=== PATIENT | female | born 1960 | race Caucasian/White ===

== ENCOUNTER 2021-06-26 16:16 | Emergency (ER) | payer MEDICAID ==
[~2021-06-26] VITALS: Ht 162.6 cm; Wt 76.8 kg
[~2021-06-26 16:16] MED LIST: ALOG25TA PO; ATOR20TA66 PO; CARV-50 PO; CHOL100046 PO; CLOP75TA15 PO; GABA300C PO; HYDR25TA4 PO; INSU100I31 SQ; LISI10TA27 PO; METF-438 PO; PROP10DR5 EACHEYE; XAL0.005OS EACHEYE
[2021-06-26] MEDS ORDERED: famotidine/PF 10 mg/ml inj IV ONE (16:30)
[2021-06-26] MEDS ORDERED: ondansetron/PF 4mg/2ml inj IV ONE (16:30)
[2021-06-26 17:03] LABS: ALANINE AMINOTRANSFERASE 59 U/L (12-78); ALBUMIN 3.4 G/DL (3.4-5.0); ALKALINE PHOSPHATASE 60 IU/L (46-116); ANION GAP 9 (8-16); ASPARTATE AMINO TRANSFERASE 24 U/L (10-37); BILIRUBIN,TOTAL 0.2 MG/DL (0.1-1.0); BLOOD UREA NITROGEN 32 MG/DL (7-18); CHLORIDE 109 MMOL/L (99-107); CREATININE 1.23 MG/DL (0.40-0.90); GLUCOSE 116 MG/DL (70-104); POTASSIUM 4.4 MMOL/L (3.5-5.1); SODIUM 143 MMOL/L (135-145); TOTAL CARBON DIOXIDE 25.5 MMOL/L (24-32); TOTAL PROTEIN 6.7 G/DL (6.4-8.2); eGFR 45 ML/MIN
[2021-06-26 17:06] LABS: BASOPHILS # (AUTO) 0.1 X10'3 (0-0.2); BASOPHILS % (AUTO) 0.7 % (0-1); EOSINOPHILS # (AUTO) 0.3 X10'3 (0-0.9); EOSINOPHILS % (AUTO) 2.9 % (0-6); HEMATOCRIT 34.5 % (35.0-45.0); HEMOGLOBIN 11.5 g/dl (12.0-16.0); LYMPHOCYTES # (AUTO) 2.8 X10'3 (1.1-4.8); LYMPHOCYTES % (AUTO) 27.4 % (21-51); MEAN CORPUSCULAR HEMOGLOBIN 30.7 PG (27.0-31.0); MEAN CORPUSCULAR HGB CONC 33.3 g/dL (33.0-36.5); MONOCYTES # (AUTO) 0.9 X10'3 (0-0.9); MONOCYTES % (AUTO) 9.1 % (2-12); NEUTROPHILS # (AUTO) 6.1 X10'3 (1.8-7.7); NEUTROPHILS % (AUTO) 59.9 % (42-75); PLATELET COUNT 356 X10'3 (140-440); RED BLOOD COUNT 3.74 X10'6 (4.20-5.60); RED CELL DISTRIBUTION WIDTH 14.8 % (11.5-14.5); WHITE BLOOD COUNT 10.2 X10'3 (4.5-11.0)
[2021-06-26 19:11] VITALS: BP 144/64
[2021-06-26] MEDS ORDERED: PANT-47 PO (19:30)
== END 2021-06-26 20:00 | disposition home or self-care (01) ==
LOC: ER 16:17
DX: K29.00 Acute gastritis without bleeding (principal); F17.200 Nicotine dependence, unspecified, uncomplicated; Z86.73 Personal history of transient ischemic attack (TIA), and cerebral infarction without residual deficits; Z88.6 Allergy status to analgesic agent; Z79.4 Long term (current) use of insulin; Z79.899 Other long term (current) drug therapy
CPT/HCPCS: 36415; 71045; 80053; 84484; 85025; 93005; 96374; 96375; 99285; J2405; J3490

== ENCOUNTER 2021-08-04 17:21 | Inpatient (IN) | payer MEDICAID ==
[~2021-08-04] VITALS: Ht 170.2 cm; Wt 79.0 kg
[~2021-08-04 17:21] MED LIST changes: +PANT-47 PO
[2021-08-04] MEDS ORDERED: normal saline 1000ML IV soln IV ONE ×2 (17:30→18:15)
[2021-08-04 17:47] LABS: BASOPHILS # (AUTO) 0.1 X10'3 (0-0.2); BASOPHILS % (AUTO) 0.3 % (0-1); EOSINOPHILS % (AUTO) 0 % (0-6); HEMOGLOBIN 12.1 g/dl (12.0-16.0); LYMPHOCYTES # (AUTO) 1.5 X10'3 (1.1-4.8); LYMPHOCYTES % (AUTO) 6.4 % (21-51); MEAN CORPUSCULAR HEMOGLOBIN 30.8 PG (27.0-31.0); MEAN CORPUSCULAR HGB CONC 33.5 g/dL (33.0-36.5); MEAN CORPUSCULAR VOLUME 92.1 FL (78-98); MEAN PLATELET VOLUME 9.4 FL (7.4-10.4); MONOCYTES # (AUTO) 1.6 X10'3 (0-0.9); MONOCYTES % (AUTO) 6.5 % (2-12); NEUTROPHILS # (AUTO) 20.8 X10'3 (1.8-7.7); NEUTROPHILS % (AUTO) 86.8 % (42-75); PLATELET COUNT 324 X10'3 (140-440); RED BLOOD COUNT 3.91 X10'6 (4.20-5.60); RED CELL DISTRIBUTION WIDTH 14.3 % (11.5-14.5)
[2021-08-04 18:14] LABS: ALANINE AMINOTRANSFERASE 45 U/L (12-78); ALBUMIN 3.3 G/DL (3.4-5.0); ALBUMIN/GLOBULIN RATIO 0.8 (1.1-1.5); ALKALINE PHOSPHATASE 83 IU/L (46-116); ANION GAP 9 (8-16); ASPARTATE AMINO TRANSFERASE 36 U/L (10-37); BILIRUBIN,TOTAL 0.5 MG/DL (0.1-1.0); BLOOD UREA NITROGEN 25 MG/DL (7-18); BUN/CREATININE RATIO 16.4 (6.6-38.0); CALCIUM 9.3 MG/DL (8.5-10.1); CHLORIDE 102 MMOL/L (99-107); CREATININE 1.52 MG/DL (0.40-0.90); GLUCOSE 242 MG/DL (70-104); POTASSIUM 3.8 MMOL/L (3.5-5.1); SODIUM 139 MMOL/L (135-145); TOTAL CARBON DIOXIDE 27.6 MMOL/L (24-32); TOTAL PROTEIN 7.3 G/DL (6.4-8.2); eGFR 35 ML/MIN
[2021-08-04] MEDS ORDERED: CefTRIAXone 2gm/NS 100ml IVPB 100 ML IV ONE (18:15)
[2021-08-04 18:17] LABS: CLARITY,URINE CLEAR (Clear); COLOR,URINE YELLOW (Yellow); GLUCOSE, URINE 250 mg/dl (Neg); KETONES,URINE NEGATIVE (Neg); LEUKOCYTE ESTERASE ,URINE NEGATIVE (Neg); NITRITES, URINE NEGATIVE (Neg); OCCULT BLOOD,URINE SMALL (Neg); PH,URINE 6.5 (4.8-8.0); PROTEIN,URINE >=300 mg/dl (Neg)
[2021-08-04 18:26] LABS: UA COLLECTION TYPE STRAIGHT CATH
[2021-08-04 18:27] LABS: BACTERIA,URINE FEW /HPF (Neg); RBC,URINE 0-2 /HPF (0-2); SQUAMOUS EPITHELIAL CELL,UR FEW /LPF (FEW); WBC,URINE NONE SEEN /HPF (0-4)
[2021-08-04 18:39] LABS: URINE AMPHETAMINE SCREEN POSITIVE (Neg); URINE BARBITUATE SCREEN NEGATIVE (Neg); URINE BENZODIAZEPINES SCREEN NEGATIVE (Neg); URINE CANNABINOID SCREEN NEGATIVE (Neg); URINE COCAINE SCREEN NEGATIVE (Neg); URINE METHADONE SCREEN NEGATIVE (Neg); URINE OPIATE SCREEN NEGATIVE (Neg); URINE PHENCYCLIDINE SCREEN NEGATIVE (Neg)
[2021-08-04] MEDS: normal saline 1000ml 1,000 ML IV SCH (19:50)
[2021-08-04] MEDS ORDERED: naloxone 0.4 mg/ml inj IV PRN (19:50)
[2021-08-04] MEDS ORDERED: ondansetron/PF 4mg/2ml inj IV PRN (19:50)
[2021-08-04] MEDS ORDERED: magnesium hydroxide 30ml (MOM) UD suspension PO PRN (19:50)
[2021-08-04] MEDS ORDERED: bisacodyl 10mg suppository rectal RC PRN (19:50)
[2021-08-04] MEDS ORDERED: diphenhydrAMINE 25mg capsule PO PRN (19:50)
[2021-08-04] MEDS ORDERED: acetaminophen 325mg tablet PO PRN ×2 (19:50)
[2021-08-04] MEDS ORDERED: mag hydrox/Alum hydrox/simeth 30ml oral suspension PO PRN (19:50)
[2021-08-04] MEDS ORDERED: acetaminophen 650mg rectal suppository RC PRN (19:50)
[2021-08-04] MEDS ORDERED: ondansetron 4mg rapidly disintigrating tab PO PRN (19:50)
[2021-08-04] MEDS ORDERED: diphenhydrAMINE 50 mg/ml inj IV PRN (19:50)
[2021-08-04] MEDS: docusate sod 100mg capsule PO SCH (20:00)
[2021-08-04] MEDS ORDERED: piperacillin/tazo 4.5gm/100ml 100 ML IV SCH (20:00)
[2021-08-04 20:15] LABS: APTT 30 SECONDS (22-32)
[2021-08-04 20:16] LABS: HEMOGLOBIN A1C 8.3 % (4.5-6.2)
[2021-08-04 20:24] LABS: MAGNESIUM 1.7 MG/DL (1.5-2.4); PHOSPHORUS 2.9 MG/DL (2.3-4.5)
[2021-08-04] MEDS ORDERED: vancomycin/NS 1 GM ADD-VANTAGE 250 ML IV SCH (20:30)
[2021-08-04] MEDS ORDERED: temazepam 15mg capsule PO PRN (21:00)
[2021-08-04] MEDS ORDERED: OMEP20TA43 PO (21:19)
[2021-08-04] MEDS ORDERED: ARIP5TAB60 PO (21:19)
[2021-08-04] MEDS ORDERED: LIDO700A47 TOP (21:19)
[2021-08-04] MEDS ORDERED: GABA300C PO (21:19)
[2021-08-04] MEDS ORDERED: ESCI20TA39 PO (21:19)
[2021-08-04] MEDS ORDERED: CARV3.122 PO (21:19)
[2021-08-04] MEDS ORDERED: ATOR-2 PO (21:19)
[2021-08-04] MEDS ORDERED: DULA0.75 SQ (21:19)
[2021-08-04] MEDS ORDERED: CLOP75TA34 PO (21:19)
[2021-08-04] MEDS ORDERED: LATA2.5D14 EACHEYE (21:19)
[2021-08-04] MEDS ORDERED: METF-517 PO (21:19)
[2021-08-04] MEDS ORDERED: SITA100T15 PO (21:19)
[2021-08-04] MEDS ORDERED: DEXTROSE 15 GM of carb/4 tabs (each vial/BOTTLE has 4 tablets) PO PRN ×2 (21:35)
[2021-08-04] MEDS ORDERED: dextrose 50%-water 50ml dispensing syringe IV PRN ×2 (21:35)
[2021-08-04] MEDS ORDERED: glucagon, human recombinant 1mg kit SUBCUT PRN (21:35)
[2021-08-04] MEDS ORDERED: MESSAGE TO PHARMACY PO ONE (21:35)
[2021-08-04] MEDS: heparin, porcine 5000 units/ml vial SQ SCH (22:39)
[2021-08-04] MEDS: morphine 2 MG/ML inj. syringe IV PRN (22:44)
--- NOTE | 2021-08-05 01:41 | NUR ---
PT LINENS CHANGED. NS INFUSING AT 100ML/ HR. NO ACUTE DISTRESS. GEN WEAKNESS NOTED. NO UNILATERAL WEAKNESS, FACIAL DROOP OR APHASIA NOTED. WILL CONT TO MONITOR THROUGHOUT
--- NOTE | 2021-08-05 03:30 | NUR ---
pt moved from stretcher to hospital bed. alize care provided
[2021-08-05] MEDS: morphine 2 MG/ML inj. syringe IV PRN (04:40)
--- NOTE | 2021-08-05 05:31 | NUR ---
blood draw performed. external cath placed
[2021-08-05 05:44] LABS: BASOPHILS # (AUTO) 0.1 X10'3 (0-0.2); BASOPHILS % (AUTO) 0.8 % (0-1); HEMOGLOBIN 9.1 g/dl (12.0-16.0); LYMPHOCYTES % (AUTO) 8.5 % (21-51); RED CELL DISTRIBUTION WIDTH 14.3 % (11.5-14.5)
[2021-08-05 05:45] LABS: EOSINOPHILS % (AUTO) 0.1 % (0-6); HEMATOCRIT 27.7 % (35.0-45.0); LYMPHOCYTES # (AUTO) 1.4 X10'3 (1.1-4.8); MEAN CORPUSCULAR HEMOGLOBIN 30.2 PG (27.0-31.0); MEAN CORPUSCULAR HGB CONC 32.9 g/dL (33.0-36.5); MEAN CORPUSCULAR VOLUME 91.6 FL (78-98); MEAN PLATELET VOLUME 9.4 FL (7.4-10.4); MONOCYTES # (AUTO) 1.4 X10'3 (0-0.9); MONOCYTES % (AUTO) 8.3 % (2-12); NEUTROPHILS % (AUTO) 82.3 % (42-75); PLATELET COUNT 211 X10'3 (140-440); RED BLOOD COUNT 3.03 X10'6 (4.20-5.60)
[2021-08-05 05:49] LABS: ALANINE AMINOTRANSFERASE 33 U/L (12-78); ALBUMIN 2.6 G/DL (3.4-5.0); ALBUMIN/GLOBULIN RATIO 0.7 (1.1-1.5); ALKALINE PHOSPHATASE 73 IU/L (46-116); ANION GAP 10 (8-16); ASPARTATE AMINO TRANSFERASE 38 U/L (10-37); BILIRUBIN,TOTAL 0.3 MG/DL (0.1-1.0); BLOOD UREA NITROGEN 19 MG/DL (7-18); CALCIUM 7.8 MG/DL (8.5-10.1); CHLORIDE 108 MMOL/L (99-107); CHOL/HDL RATIO 1.9 (0.00-4.99); CHOLESTEROL 73 MG/DL (0-200); CREATININE 1.12 MG/DL (0.40-0.90); GLUCOSE 195 MG/DL (70-104); HDL CHOLESTEROL 38 MG/DL (35-60); LDL CHOLESTEROL 29 MG/DL (50-100); SODIUM 140 MMOL/L (135-145); TOTAL CARBON DIOXIDE 21.6 MMOL/L (24-32); TOTAL PROTEIN 6.1 G/DL (6.4-8.2); TRIGLYCERIDES 95 MG/DL (20-135); eGFR 50 ML/MIN
[2021-08-05 05:50] LABS: POTASSIUM 3.6 MMOL/L (3.5-5.1)
[2021-08-05 06:01] LABS: TOTAL CELLS COUNTED 100
[2021-08-05 06:02] LABS: PLATELET ESTIMATE NORMAL
[2021-08-05] MEDS ORDERED: vancomycin/NS 1 GM ADD-VANTAGE 250 ML IV SCH (06:57)
[2021-08-05] MEDS: vancomycin/NS 1 GM ADD-VANTAGE 250 ML IV SCH ×2 (08:32→21:01)
[2021-08-05] MEDS: normal saline 1000ml 1,000 ML IV SCH (08:32)
[2021-08-05] MEDS: docusate sod 100mg capsule PO SCH ×2 (08:34→20:00)
[2021-08-05] MEDS: carVEDilol 3.125mg tablet PO SCH ×2 (08:34→20:07)
[2021-08-05] MEDS: pantoprazole 40mg Tablet.DR PO SCH (08:35)
[2021-08-05] MEDS: clopidogrel 75mg tablet PO SCH (08:35)
[2021-08-05] MEDS: lisinopril 10 MG tablet PO SCH (08:35)
[2021-08-05] MEDS: heparin, porcine 5000 units/ml vial SQ SCH ×2 (08:35→20:07)
[2021-08-05] MEDS: aripiprazole 5mg tablet PO SCH (08:36)
[2021-08-05] MEDS: atorvastatin 20mg tablet PO SCH (08:36)
[2021-08-05] MEDS: gabapentin 300mg capsule PO SCH ×4 (08:36→21:18)
[2021-08-05] MEDS: ESCITALOPRAM OXALATE 5 MG TABLET PO SCH (08:36)
[2021-08-05] MEDS: LIDOcaine 5% patch TP SCH (08:37)
[2021-08-05] MEDS: piperacillin/tazo 4.5gm/100ml 100 ML IV SCH ×2 (09:38→17:18)
--- NOTE | 2021-08-05 13:05 | NUR ---
TC FROM DAUGHTER, TEO GLEZ, . CONDITION REPORT GIVEN TO DAUGHTER AND QUESTIONS ANSWERED. DAUGHTER STATES SHE WOULD LIKE TO SPEAK WITH A YOUTH CAREER SPECIALIST/LOAN ADVISER IN REGARDS TO DC PLANS. TEO WILL FOLLOW UP WHEN HER MOM IS ASSIGNED TO AN INPATIENT ROOM, TO DISCUSS HER CONCERNS AND DC PLANS.
--- NOTE | 2021-08-05 13:30 | NUR ---
PT BEING TAKEN TO HAVE MRI, NEUROTIN TO BE GIVEN WHEN PT COMES BACK.
--- NOTE | 2021-08-05 14:51 | NUR ---
REPORT GIVEN TO ERICKA SUAZO, PT TO GO TO ROOM 5217T
--- NOTE | 2021-08-05 15:26 | NUR ---
Patient just got here from ER. Patient alert, oriented x 2-3. at bedside. Introduced myself to the patient.
--- NOTE | 2021-08-05 15:44 | NUR ---
Paged Dr. Durham Message: Jose Lindo RN [id number] RE: Lorrie Arroyo. Patient already here from ER. MRI head result showed a tiny subcortical restricted diffusion within posterior right temporal lobe may reflect new acute ischemia.
--- NOTE | 2021-08-05 15:47 | NUR ---
Dr. Durham called me, ordered a teleneuro consult. I told Dr. Durham that I had activated stroke alert already and spoke to the stroke nurse Daniel who confirmed to me that she already seen this patient at ER
--- NOTE | 2021-08-05 16:15 | NUR ---
Teleneuro consultation initiated
--- NOTE | 2021-08-05 16:16 | NUR ---
Patient alert, oriented to self and date. I asked her about where she is at she answered incorrectly
[2021-08-05 18:00] VITALS: BP 163/74
--- NOTE | 2021-08-05 18:21 | NUR ---
Problems reprioritized. Patient report given, questions answered & plan of care reviewed with Zainab BARNETT.
[2021-08-05] MEDS: latanoprost 0.005% 2.5ml ophthalmic drops EACHEYE SCH (21:01)
[2021-08-05] MEDS: insulin Lispro (HumaLOG) vial - multi-dose SQ SCH (21:15)
[2021-08-05 22:00] VITALS: BP 185/81
[2021-08-05 22:30] VITALS: BP 157/63
[2021-08-05] MEDS: insulin glargine (Lantus) pen - multi-dose SQ SCH (22:54)
[2021-08-06] MEDS: piperacillin/tazo 4.5gm/100ml 100 ML IV SCH ×3 (00:26→16:16)
[2021-08-06 02:00] VITALS: BP 168/61
[2021-08-06 06:30] LABS: BASOPHILS # (AUTO) 0.1 X10'3 (0-0.2); BASOPHILS % (AUTO) 0.5 % (0-1); EOSINOPHILS % (AUTO) 0.1 % (0-6); HEMATOCRIT 31.7 % (35.0-45.0); HEMOGLOBIN 10.6 g/dl (12.0-16.0); LYMPHOCYTES # (AUTO) 1.8 X10'3 (1.1-4.8); LYMPHOCYTES % (AUTO) 9.7 % (21-51); MEAN CORPUSCULAR HEMOGLOBIN 30.9 PG (27.0-31.0); MEAN CORPUSCULAR HGB CONC 33.5 g/dL (33.0-36.5); MEAN CORPUSCULAR VOLUME 92.4 FL (78-98); MONOCYTES # (AUTO) 1.5 X10'3 (0-0.9); MONOCYTES % (AUTO) 8.3 % (2-12); NEUTROPHILS # (AUTO) 15.1 X10'3 (1.8-7.7); NEUTROPHILS % (AUTO) 81.4 % (42-75); PLATELET COUNT 241 X10'3 (140-440); RED BLOOD COUNT 3.43 X10'6 (4.20-5.60); RED CELL DISTRIBUTION WIDTH 14.2 % (11.5-14.5); WHITE BLOOD COUNT 18.5 X10'3 (4.5-11.0)
[2021-08-06 06:48] LABS: ALANINE AMINOTRANSFERASE 33 U/L (12-78); ALBUMIN 2.5 G/DL (3.4-5.0); ALBUMIN/GLOBULIN RATIO 0.6 (1.1-1.5); ALKALINE PHOSPHATASE 77 IU/L (46-116); ANION GAP 9 (8-16); ASPARTATE AMINO TRANSFERASE 32 U/L (10-37); BILIRUBIN,TOTAL 0.7 MG/DL (0.1-1.0); BLOOD UREA NITROGEN 14 MG/DL (7-18); CALCIUM 8.4 MG/DL (8.5-10.1); CHLORIDE 103 MMOL/L (99-107); CREATININE 1.17 MG/DL (0.40-0.90); GLUCOSE 225 MG/DL (70-104); MAGNESIUM 1.5 MG/DL (1.5-2.4); PHOSPHORUS 3.1 MG/DL (2.3-4.5); POTASSIUM 3.1 MMOL/L (3.5-5.1); SODIUM 137 MMOL/L (135-145); TOTAL CARBON DIOXIDE 24.9 MMOL/L (24-32); TOTAL PROTEIN 6.4 G/DL (6.4-8.2); eGFR 47 ML/MIN
[2021-08-06 06:54] VITALS: BP 135/58
--- NOTE | 2021-08-06 06:59 | NUR ---
Patient in room PCU 3024. I have received report from Zainab BARNETT and had the opportunity to ask questions and assume patient care.
[2021-08-06] MEDS ORDERED: VANCOMYCIN LEVEL IV ONE (07:30)
[2021-08-06] MEDS: pantoprazole 40mg Tablet.DR PO SCH (09:50)
[2021-08-06] MEDS: carVEDilol 3.125mg tablet PO SCH ×2 (09:50→19:22)
[2021-08-06] MEDS: clopidogrel 75mg tablet PO SCH (09:50)
[2021-08-06] MEDS: lisinopril 10 MG tablet PO SCH (09:50)
[2021-08-06] MEDS: gabapentin 300mg capsule PO SCH ×4 (09:51→21:10)
[2021-08-06] MEDS: docusate sod 100mg capsule PO SCH ×2 (09:51→19:27)
[2021-08-06] MEDS: aripiprazole 5mg tablet PO SCH (09:51)
[2021-08-06] MEDS: atorvastatin 20mg tablet PO SCH (09:52)
[2021-08-06] MEDS: heparin, porcine 5000 units/ml vial SQ SCH ×2 (09:54→19:19)
[2021-08-06] MEDS: LIDOcaine 5% patch TP SCH (09:57)
[2021-08-06] MEDS: insulin Lispro (HumaLOG) vial - multi-dose SQ SCH ×3 (10:05→19:16)
--- NOTE | 2021-08-06 10:25 | NUR ---
Diabetes consult: Noted pt w/ hx of DM A1c 8.3, pt declined verbal ed at this time though was accepting of written DM ed w/ RD contact info to be placed in her chart. Addendum: 08/06/21 at [address] Amended: Links added.
[2021-08-06] MEDS: VANCOmycin 1250MG/NS 250ml Bag 250 ML IV SCH ×2 (10:46→21:21)
[2021-08-06] MEDS: ESCITALOPRAM OXALATE 5 MG TABLET PO SCH (10:46)
[2021-08-06 12:00] VITALS: BP 158/71
[2021-08-06 16:31] VITALS: BP 119/54
--- NOTE | 2021-08-06 16:53 | NUR ---
Message: Norris [facility] [id number] re: Indra Chavez [id number] Patient had a 24hr tele that has now , did you want to continue or end monitoring
[2021-08-06 18:00] VITALS: BP 105/58
[2021-08-06] MEDS ORDERED: potassium Cl 20 mEq SR tablet PO PRN (18:00)
[2021-08-06] MEDS ORDERED: potassium CL 10mEq/100ml bag 100 ML IV PRN (18:00)
[2021-08-06] MEDS ORDERED: magnesium Cl slow-release 64mg tablet PO PRN (18:00)
[2021-08-06] MEDS ORDERED: magnesium 4gm in 100ml NS 100 ML IV PRN (18:00)
--- NOTE | 2021-08-06 18:20 | NUR ---
Problems reprioritized. Patient report given, questions answered & plan of care reviewed with Claudia BARNETT.
--- NOTE | 2021-08-06 18:20 | NUR ---
Patient in room PCU 3029X. I have received report from ERICKA Pisano and had the opportunity to ask questions and assume patient care.
[2021-08-06] MEDS: potassium Cl 20 mEq SR tablet PO PRN (18:23)
[2021-08-06] MEDS: latanoprost 0.005% 2.5ml ophthalmic drops EACHEYE SCH (21:10)
[2021-08-06] MEDS: insulin glargine (Lantus) pen - multi-dose SQ SCH (21:16)
[2021-08-06 22:00] VITALS: BP 122/58
[2021-08-07] MEDS: potassium Cl 20 mEq SR tablet PO PRN ×3 (00:01→16:02)
[2021-08-07] MEDS: piperacillin/tazo 4.5gm/100ml 100 ML IV SCH ×3 (00:01→16:02)
[2021-08-07 02:00] VITALS: BP 136/61
[2021-08-07 06:00] VITALS: BP 140/68
--- NOTE | 2021-08-07 06:29 | NUR ---
Problems reprioritized. Patient report given, questions answered & plan of care reviewed with ERICKA Lynn.
[2021-08-07 07:04] LABS: BASOPHILS % (AUTO) 0.4 % (0-1); EOSINOPHILS # (AUTO) 0.3 X10'3 (0-0.9); EOSINOPHILS % (AUTO) 2.7 % (0-6); HEMATOCRIT 29.9 % (35.0-45.0); HEMOGLOBIN 10.2 g/dl (12.0-16.0); LYMPHOCYTES # (AUTO) 2.3 X10'3 (1.1-4.8); LYMPHOCYTES % (AUTO) 21.3 % (21-51); MEAN CORPUSCULAR HEMOGLOBIN 30.6 PG (27.0-31.0); MEAN CORPUSCULAR VOLUME 90.1 FL (78-98); MEAN PLATELET VOLUME 9.5 FL (7.4-10.4); MONOCYTES % (AUTO) 9.5 % (2-12); NEUTROPHILS # (AUTO) 7.2 X10'3 (1.8-7.7); NEUTROPHILS % (AUTO) 66.1 % (42-75); PLATELET COUNT 289 X10'3 (140-440); RED BLOOD COUNT 3.32 X10'6 (4.20-5.60); RED CELL DISTRIBUTION WIDTH 13.7 % (11.5-14.5); WHITE BLOOD COUNT 10.9 X10'3 (4.5-11.0)
[2021-08-07 07:16] LABS: ALANINE AMINOTRANSFERASE 37 U/L (12-78); ALBUMIN 2.3 G/DL (3.4-5.0); ALBUMIN/GLOBULIN RATIO 0.6 (1.1-1.5); ALKALINE PHOSPHATASE 66 IU/L (46-116); ANION GAP 8 (8-16); ASPARTATE AMINO TRANSFERASE 32 U/L (10-37); BILIRUBIN,TOTAL 0.5 MG/DL (0.1-1.0); BLOOD UREA NITROGEN 17 MG/DL (7-18); BUN/CREATININE RATIO 12.5 (6.6-38.0); CALCIUM 8.4 MG/DL (8.5-10.1); CHLORIDE 108 MMOL/L (99-107); CREATININE 1.36 MG/DL (0.40-0.90); GLUCOSE 141 MG/DL (70-104); MAGNESIUM 1.7 MG/DL (1.5-2.4); PHOSPHORUS 3.5 MG/DL (2.3-4.5); POTASSIUM 3.4 MMOL/L (3.5-5.1); SODIUM 140 MMOL/L (135-145); TOTAL CARBON DIOXIDE 24.4 MMOL/L (24-32); TOTAL PROTEIN 6.2 G/DL (6.4-8.2); eGFR 40 ML/MIN
--- NOTE | 2021-08-07 08:28 | NUR ---
Message: [id number]. Patient's RLE is reddened, warm and painful to touch. Do you want US to rule out DVT? Leah BARNETT [id number]
[2021-08-07] MEDS: docusate sod 100mg capsule PO SCH ×2 (08:29→20:00)
[2021-08-07] MEDS: ESCITALOPRAM OXALATE 5 MG TABLET PO SCH (08:29)
[2021-08-07] MEDS: atorvastatin 20mg tablet PO SCH (08:30)
[2021-08-07] MEDS: carVEDilol 3.125mg tablet PO SCH ×2 (08:30→21:43)
[2021-08-07] MEDS: clopidogrel 75mg tablet PO SCH (08:30)
[2021-08-07] MEDS: pantoprazole 40mg Tablet.DR PO SCH (08:30)
[2021-08-07] MEDS: heparin, porcine 5000 units/ml vial SQ SCH ×2 (08:30→21:45)
[2021-08-07] MEDS: lisinopril 10 MG tablet PO SCH (08:30)
[2021-08-07] MEDS: gabapentin 300mg capsule PO SCH ×4 (08:30→21:43)
[2021-08-07] MEDS: aripiprazole 5mg tablet PO SCH (08:30)
[2021-08-07] MEDS: LIDOcaine 5% patch TP SCH (08:31)
[2021-08-07] MEDS: VANCOmycin 1250MG/NS 250ml Bag 250 ML IV SCH ×2 (09:06→21:00)
[2021-08-07] MEDS: insulin Lispro (HumaLOG) vial - multi-dose SQ SCH ×3 (09:22→18:46)
--- NOTE | 2021-08-07 09:36 | NUR ---
Message: [id number]. RLE redness/pain worsening. Can we get US to rule out DVT? Leah BARNETT [id number]
[2021-08-07 11:00] VITALS: BP 119/50
[2021-08-07 15:00] VITALS: BP 147/68
--- NOTE | 2021-08-07 18:20 | NUR ---
Patient in room PCU 3024. I have received report from Leah BARNETT and had the opportunity to ask questions and assume patient care.
[2021-08-07 18:30] VITALS: BP 159/73
--- NOTE | 2021-08-07 18:33 | NUR ---
Problems reprioritized. Patient report given, questions answered & plan of care reviewed with Erendira BARNETT.
[2021-08-07] MEDS ORDERED: VANCOMYCIN LEVEL IV ONE (20:30)
[2021-08-07] MEDS: latanoprost 0.005% 2.5ml ophthalmic drops EACHEYE SCH (21:53)
[2021-08-07 22:00] VITALS: BP 149/71
[2021-08-07] MEDS: insulin glargine (Lantus) pen - multi-dose SQ SCH (22:07)
[2021-08-07] MEDS: HYDROcodone/acetaminophen 5mg/325mg tablet PO PRN (22:17)
[2021-08-08] VITALS (8 sets, daily range): BP systolic 114–174; BP diastolic 54–82
[2021-08-08] MEDS: piperacillin/tazo 4.5gm/100ml 100 ML IV SCH ×2 (00:46→09:30)
--- NOTE | 2021-08-08 02:55 | NUR ---
Called MD as patient having elevated BP of 174/73,73. stated no new orders at this time.
[2021-08-08 06:06] LABS: BASOPHILS % (AUTO) 0.4 % (0-1); EOSINOPHILS # (AUTO) 0.4 X10'3 (0-0.9); EOSINOPHILS % (AUTO) 3.7 % (0-6); HEMATOCRIT 28.9 % (35.0-45.0); HEMOGLOBIN 9.9 g/dl (12.0-16.0); LYMPHOCYTES # (AUTO) 2.3 X10'3 (1.1-4.8); LYMPHOCYTES % (AUTO) 22.3 % (21-51); MEAN CORPUSCULAR HEMOGLOBIN 31.4 PG (27.0-31.0); MEAN CORPUSCULAR HGB CONC 34.4 g/dL (33.0-36.5); MEAN CORPUSCULAR VOLUME 91.4 FL (78-98); MEAN PLATELET VOLUME 9.4 FL (7.4-10.4); MONOCYTES # (AUTO) 0.9 X10'3 (0-0.9); NEUTROPHILS # (AUTO) 6.7 X10'3 (1.8-7.7); NEUTROPHILS % (AUTO) 64.6 % (42-75); PLATELET COUNT 299 X10'3 (140-440); RED BLOOD COUNT 3.16 X10'6 (4.20-5.60); RED CELL DISTRIBUTION WIDTH 14.2 % (11.5-14.5); WHITE BLOOD COUNT 10.4 X10'3 (4.5-11.0)
[2021-08-08 06:23] LABS: ALANINE AMINOTRANSFERASE 41 U/L (12-78); ALBUMIN 2.2 G/DL (3.4-5.0); ALBUMIN/GLOBULIN RATIO 0.6 (1.1-1.5); ALKALINE PHOSPHATASE 62 IU/L (46-116); ANION GAP 12 (8-16); ASPARTATE AMINO TRANSFERASE 31 U/L (10-37); BILIRUBIN,TOTAL 0.4 MG/DL (0.1-1.0); BLOOD UREA NITROGEN 18 MG/DL (7-18); BUN/CREATININE RATIO 15.1 (6.6-38.0); CALCIUM 8.6 MG/DL (8.5-10.1); CHLORIDE 107 MMOL/L (99-107); CREATININE 1.19 MG/DL (0.40-0.90); GLUCOSE 151 MG/DL (70-104); MAGNESIUM 1.6 MG/DL (1.5-2.4); PHOSPHORUS 3.4 MG/DL (2.3-4.5); POTASSIUM 3.7 MMOL/L (3.5-5.1); SODIUM 141 MMOL/L (135-145); TOTAL CARBON DIOXIDE 22.4 MMOL/L (24-32); TOTAL PROTEIN 6.1 G/DL (6.4-8.2); eGFR 46 ML/MIN
--- NOTE | 2021-08-08 06:30 | NUR ---
Problems reprioritized. Patient report given, questions answered & plan of care reviewed with Elza BARNETT.
[2021-08-08 08:18] LABS: VANCOMYCIN,RANDOM 22.3 UG/ML
[2021-08-08] MEDS: heparin, porcine 5000 units/ml vial SQ SCH ×2 (09:13→20:10)
[2021-08-08] MEDS: LIDOcaine 5% patch TP SCH (09:14)
[2021-08-08] MEDS: clopidogrel 75mg tablet PO SCH (09:15)
[2021-08-08] MEDS: aripiprazole 5mg tablet PO SCH (09:15)
[2021-08-08] MEDS: carVEDilol 3.125mg tablet PO SCH ×2 (09:15→20:10)
[2021-08-08] MEDS: ESCITALOPRAM OXALATE 5 MG TABLET PO SCH (09:15)
[2021-08-08] MEDS: atorvastatin 20mg tablet PO SCH (09:15)
[2021-08-08] MEDS: gabapentin 300mg capsule PO SCH ×4 (09:15→20:11)
[2021-08-08] MEDS: docusate sod 100mg capsule PO SCH ×2 (09:17→20:00)
[2021-08-08] MEDS: HYDROcodone/acetaminophen 5mg/325mg tablet PO PRN (09:17)
[2021-08-08] MEDS: lisinopril 10 MG tablet PO SCH (09:18)
[2021-08-08] MEDS: pantoprazole 40mg Tablet.DR PO SCH (09:18)
--- NOTE | 2021-08-08 09:22 | NUR ---
Initial: pt admitted w/ ALOC secondary to acute CVA, RLE cellulitis, and meth addiction per EMR. Currently on MM5 per [employer]WMI[employer] OPERATOR and Heart Healthy diet initially w/ 0% intake though up to 100% intake of meals 08/07. Initial poor PO intake possibly related to withdrawals. LBM 08/07 receiving routine colace. No nutrition intervention implemented at this time, will continue to monitor. Recs: 1. Continue MM5/Heart Healthy diet as tolerated 2. Monitor need for ONS pending further PO trends 3. Bowel care per rx 4. Scaled wts this admit Addendum: 08/08/21 at [address] Amended: Links added.
[2021-08-08] MEDS: insulin Lispro (HumaLOG) vial - multi-dose SQ SCH ×3 (09:36→20:07)
[2021-08-08] MEDS: VANCOmycin 1250MG/NS 250ml Bag 250 ML IV SCH (10:41)
[2021-08-08] MEDS ORDERED: piperacillin/tazo 3.375gm/50ml 100 ML IV SCH (11:00)
--- NOTE | 2021-08-08 11:53 | NUR ---
Message: Lorrie Chavez [id number] Pt. BP 164/82 HR 72. No prn BP meds ordered. Elza [id number]
[2021-08-08] MEDS: amLODIPine 5mg tablet PO SCH (12:26)
[2021-08-08] MEDS: piperacillin/tazobactam inj. 3.375 GM in NS 50ml IV SCH (16:49)
--- NOTE | 2021-08-08 18:32 | NUR ---
Gave report to Fatoumata BARNETT.
[2021-08-08] MEDS: latanoprost 0.005% 2.5ml ophthalmic drops EACHEYE SCH (20:12)
[2021-08-08] MEDS: insulin glargine (Lantus) pen - multi-dose SQ SCH (22:24)
[2021-08-09] MEDS: piperacillin/tazobactam inj. 3.375 GM in NS 50ml IV SCH ×2 (01:51→10:48)
[2021-08-09 02:00] VITALS: BP 167/61
[2021-08-09] MEDS: HYDROcodone/acetaminophen 5mg/325mg tablet PO PRN (05:10)
[2021-08-09 06:00] VITALS: BP 169/61
[2021-08-09 06:04] LABS: BASOPHILS # (AUTO) 0.1 X10'3 (0-0.2); BASOPHILS % (AUTO) 0.4 % (0-1); EOSINOPHILS # (AUTO) 0.6 X10'3 (0-0.9); EOSINOPHILS % (AUTO) 4.4 % (0-6); HEMATOCRIT 31.6 % (35.0-45.0); HEMOGLOBIN 10.5 g/dl (12.0-16.0); LYMPHOCYTES # (AUTO) 2.5 X10'3 (1.1-4.8); LYMPHOCYTES % (AUTO) 18.3 % (21-51); MEAN CORPUSCULAR HEMOGLOBIN 30.1 PG (27.0-31.0); MEAN CORPUSCULAR HGB CONC 33.4 g/dL (33.0-36.5); MEAN CORPUSCULAR VOLUME 90.3 FL (78-98); MEAN PLATELET VOLUME 9.1 FL (7.4-10.4); MONOCYTES # (AUTO) 1.1 X10'3 (0-0.9); MONOCYTES % (AUTO) 7.9 % (2-12); NEUTROPHILS # (AUTO) 9.3 X10'3 (1.8-7.7); PLATELET COUNT 356 X10'3 (140-440); WHITE BLOOD COUNT 13.5 X10'3 (4.5-11.0)
[2021-08-09 06:34] LABS: ALANINE AMINOTRANSFERASE 38 U/L (12-78); ALBUMIN 2.4 G/DL (3.4-5.0); ALBUMIN/GLOBULIN RATIO 0.6 (1.1-1.5); ALKALINE PHOSPHATASE 65 IU/L (46-116); ANION GAP 13 (8-16); ASPARTATE AMINO TRANSFERASE 24 U/L (10-37); BILIRUBIN,TOTAL 0.3 MG/DL (0.1-1.0); BLOOD UREA NITROGEN 18 MG/DL (7-18); BUN/CREATININE RATIO 16.2 (6.6-38.0); CHLORIDE 104 MMOL/L (99-107); CREATININE 1.11 MG/DL (0.40-0.90); GLUCOSE 126 MG/DL (70-104); MAGNESIUM 1.8 MG/DL (1.5-2.4); PHOSPHORUS 3.6 MG/DL (2.3-4.5); POTASSIUM 3.5 MMOL/L (3.5-5.1); SODIUM 141 MMOL/L (135-145); TOTAL CARBON DIOXIDE 24.5 MMOL/L (24-32); TOTAL PROTEIN 6.7 G/DL (6.4-8.2); eGFR 50 ML/MIN
--- NOTE | 2021-08-09 06:38 | NUR ---
Problems reprioritized. Patient report given, questions answered & plan of care reviewed with ERICKA Ware.
[2021-08-09] MEDS: docusate sod 100mg capsule PO SCH (08:00)
[2021-08-09] MEDS: carVEDilol 3.125mg tablet PO SCH (08:00)
[2021-08-09] MEDS: pantoprazole 40mg Tablet.DR PO SCH (08:00)
[2021-08-09] MEDS: clopidogrel 75mg tablet PO SCH (08:00)
[2021-08-09] MEDS: aripiprazole 5mg tablet PO SCH (08:00)
[2021-08-09] MEDS: LIDOcaine 5% patch TP SCH (08:00)
[2021-08-09] MEDS: ESCITALOPRAM OXALATE 5 MG TABLET PO SCH (08:00)
[2021-08-09] MEDS: amLODIPine 5mg tablet PO SCH (08:00)
[2021-08-09] MEDS: heparin, porcine 5000 units/ml vial SQ SCH (08:00)
[2021-08-09] MEDS: lisinopril 10 MG tablet PO SCH (08:00)
[2021-08-09] MEDS: gabapentin 300mg capsule PO SCH (08:00)
[2021-08-09] MEDS: atorvastatin 20mg tablet PO SCH (08:00)
[2021-08-09] MEDS: VANCOmycin 1250MG/NS 250ml Bag 250 ML IV SCH (10:47)
[2021-08-09] MEDS ORDERED: CLIN-91 PO (11:18)
[2021-08-09] MEDS ORDERED: NOR5T PO (11:19)
[2021-08-09 11:59] VITALS: BP 166/69
[2021-08-10] MEDS ORDERED: VANCOMYCIN LEVEL IV ONE (09:30)
== END 2021-08-09 15:30 | disposition home health service (06) | DRG 45 ==
LOC: ER 17:22 → ED HOLD 19:54 → CANBEDREQ 08-05 13:02 → PCU 3S 08-05 15:16
PROVIDERS: ADMIT Family Medicine; ATTEND Family Medicine
DX: I63.9 Cerebral infarction, unspecified (principal); G93.41 Metabolic encephalopathy; N17.9 Acute kidney failure, unspecified; I50.32 Chronic diastolic (congestive) heart failure; I13.0 Hypertensive heart and chronic kidney disease with heart failure and stage 1 through stage 4 chronic kidney disease, or unspecified chronic kidney disease; L03.115 Cellulitis of right lower limb; E11.65 Type 2 diabetes mellitus with hyperglycemia; E78.5 Hyperlipidemia, unspecified; K21.9 Gastro-esophageal reflux disease without esophagitis; F15.229 Other stimulant dependence with intoxication, unspecified; N18.9 Chronic kidney disease, unspecified; E11.22 Type 2 diabetes mellitus with diabetic chronic kidney disease; Z86.73 Personal history of transient ischemic attack (TIA), and cerebral infarction without residual deficits; Z90.710 Acquired absence of both cervix and uterus; Z88.6 Allergy status to analgesic agent; Z79.899 Other long term (current) drug therapy; Z79.02 Long term (current) use of antithrombotics/antiplatelets
CPT/HCPCS: 36415; 70450; 70544; 70551; 71045; 74176; 80053; 80061; 80202; 80305; 81001; 82948; 83036; 83605; 83735; 83880; 84100; 84145; 85007; 85025; 85610; 85730; 87040; 87081; 92508; 92616; 93005; 93306; 93971; 96365; 97110; 97116; 97161; 97530; 97535; 99291; G0378; J0696; J1200; J1644; J1815; J2270; J2543; J3370; J7030

== ENCOUNTER 2021-12-14 15:01 | Emergency (ER) | payer MEDICAID ==
[~2021-12-14] VITALS: Ht 175.3 cm; Wt 71.4 kg
[~2021-12-14 15:01] MED LIST changes: -ALOG25TA PO; +ARIP5TAB60 PO; +ATOR-2 PO; -ATOR20TA66 PO; -CARV-50 PO; +CARV3.122 PO; -CHOL100046 PO; -CLOP75TA15 PO; +CLOP75TA34 PO; +DULA0.75 SQ; +ESCI20TA39 PO; -HYDR25TA4 PO; +LATA2.5D14 EACHEYE; +LIDO700A47 TOP; -METF-438 PO; +METF-517 PO; +NOR5T PO; +OMEP20TA43 PO; -PANT-47 PO; -PROP10DR5 EACHEYE; +SITA100T15 PO; -XAL0.005OS EACHEYE
[2021-12-14 15:03] VITALS: BP 121/59
[2021-12-14] MEDS ORDERED: HYDR-3965 PO ×2 (19:57→20:22)
[2021-12-14] MEDS ORDERED: HYDROcodone/acetaminophen 5mg/325mg tablet PO ONE ×2 (20:40)
== END 2021-12-14 20:50 | disposition home or self-care (01) ==
LOC: ER 15:02
DX: S32.591A Other specified fracture of right pubis, initial encounter for closed fracture (principal); Z86.73 Personal history of transient ischemic attack (TIA), and cerebral infarction without residual deficits; Z88.8 Allergy status to other drugs, medicaments and biological substances; Z79.4 Long term (current) use of insulin; Z79.899 Other long term (current) drug therapy; W19.XXXA Unspecified fall, initial encounter; Y93.89 Activity, other specified; Y92.89 Other specified places as the place of occurrence of the external cause; Y99.8 Other external cause status
CPT/HCPCS: 72192; 73502; 99284